=== PATIENT | female | born 1950 | race Caucasian/White ===

== ENCOUNTER 2017-09-11 18:53 | Emergency (ER) | payer MEDICARE, OTHER ==
[2017-09-11] MEDS: TRIMETHOPRIM/SULFAMETHOX (DS) TAB PO (20:16)
[2017-09-11] MEDS: CEPHALEXIN 500 MG CAP PO (20:16)
== END 2017-09-11 20:28 | disposition home or self-care (01) ==
LOC: FTE 18:53
DX: L03.031 Cellulitis of right toe (principal); E11.9 Type 2 diabetes mellitus without complications; I10 Essential (primary) hypertension
CPT/HCPCS: 99284

== ENCOUNTER 2017-09-22 18:29 | Emergency (ER) | payer MEDICARE, OTHER ==
[2017-09-22] MEDS: NICARDipine HCL 30 MG CAPSULE PO (19:06)
[2017-09-22] MEDS: LIDOCAINE 1% (MPF) 30 ML INJ SC (19:15)
[2017-09-22] MEDS: LIDOCAINE 1% (MDV) 20 ML INJ SC (19:15)
== END 2017-09-22 20:20 | disposition home or self-care (01) ==
LOC: E/R 18:29
DX: I10 Essential (primary) hypertension (principal); L03.031 Cellulitis of right toe; E11.9 Type 2 diabetes mellitus without complications
CPT/HCPCS: 10060; 99283-25

== ENCOUNTER 2017-11-18 17:43 | Emergency (ER) | payer MEDICARE, OTHER ==
[2017-11-18] MEDS: CEPHALEXIN 500 MG CAP PO (20:11)
[2017-11-18] MEDS: traMADol 50 MG TAB PO (20:12)
[2017-11-18] MEDS: DIPHTH/TET/ACEL PERTUSS (ADULT) 0.5 ML VIAL IM* (20:13)
== END 2017-11-18 20:34 | disposition home or self-care (01) ==
LOC: FTE 17:43
DX: T24.131A Burn of first degree of right lower leg, initial encounter (principal); I10 Essential (primary) hypertension; E11.9 Type 2 diabetes mellitus without complications; X58.XXXA Exposure to other specified factors, initial encounter; Y92.9 Unspecified place or not applicable; Z23 Encounter for immunization
CPT/HCPCS: 90471; 90715; 99284-25

== ENCOUNTER 2018-01-08 09:25 | Inpatient (IN) | payer MEDICARE, OTHER ==
[2018-01-08] MEDS: CEFAZOLIN 2 GM/50 ML (PMX) 50 ML IVPB (09:00)
[~2018-01-08 09:25] MED LIST: ROCURONIUM 50 MG INJ
[2018-01-08] MEDS ORDERED: PROPOFOL 20 ML (10:11)
[2018-01-08] MEDS ORDERED: ROCURONIUM 50 MG INJ (10:11)
[2018-01-08] MEDS ORDERED: THROMBIN 5000 UNIT VIAL (10:28)
[2018-01-08] MEDS ORDERED: HEPARIN 1000 UNITS/ML 10 ML INJ (10:28)
[2018-01-08] MEDS ORDERED: PAPAVERINE 60 MG INJ (10:28)
[2018-01-08] MEDS: GELATIN SIZE 100 SPONGE TOP (10:30)
[2018-01-08] MEDS: THROMBIN 5000 UNIT VIAL TOP (10:30)
[2018-01-08] MEDS: HEPARIN 1000 UNITS/ML 10 ML INJ IRR (10:30)
[2018-01-08] MEDS ORDERED: OXYCODONE/ACETAMINOPHEN (5/325) TAB PO ×2 (11:00)
[2018-01-08] MEDS ORDERED: HYDROmorphONE 1 MG/5 ML IV SYRINGE IV ×2 (11:00)
[2018-01-08] MEDS ORDERED: METOCLOPRAMIDE 10 MG INJ IV (11:00)
[2018-01-08] MEDS ORDERED: ALBUTEROL 0.083% (NEB) 2.5 MG/3 ML AMP HHN (11:00)
[2018-01-08] MEDS ORDERED: ONDANSETRON 4 MG INJ IV (11:00)
[2018-01-08] MEDS ORDERED: FENTAnyl 50 MCG/ML VIAL IV ×3 (11:00)
[2018-01-08] MEDS ORDERED: DIPHENHYDRAMINE 50 MG INJ IV (11:00)
[2018-01-08] MEDS ORDERED: MIDAZOLAM 1 MG/ML 2 ML INJ IV (11:00)
[2018-01-08] MEDS ORDERED: EPHEDrine SULFATE 50 MG/5 ML SYG IV (11:00)
[2018-01-08] MEDS ORDERED: ONDANSETRON 4 MG INJ (12:30)
[2018-01-08] MEDS ORDERED: DEXAMETHASONE 4 MG/ML 1 ML INJ (12:30)
[2018-01-08] MEDS ORDERED: ACETAMINOPHEN 1000MG/100ML IV 100 ML (13:58)
[2018-01-08] MEDS ORDERED: CEFAZOLIN 1 GM INJ (13:58)
[2018-01-08] MEDS ORDERED: SUGAMMADEX SODIUM 200 MG/2 ML VIAL IV (13:58)
[2018-01-08] MEDS ORDERED: LABETALOL HCL 20MG INJ ×2 (14:10→15:03)
[2018-01-08] MEDS ORDERED: niCARdipine 50 MG in SOD CHLORIDE 0.9% 480 ML IV (14:30)
[2018-01-08] MEDS: MEPERIDINE 25 MG INJ IV (14:51)
[2018-01-08] MEDS: HYDROmorphONE 1 MG/5 ML IV SYRINGE IV ×2 (14:54→14:59)
[2018-01-08] MEDS: LABETALOL HCL 20MG INJ IV (15:00)
[2018-01-08] MEDS ORDERED: GLUCOSE GEL 15 GRAM TUBE PO ×2 (15:00)
[2018-01-08] MEDS ORDERED: GLUCOSE GEL 15 GRAM TUBE BUCCAL (15:00)
[2018-01-08] MEDS ORDERED: GLUCAGON 1 MG INJ IM (15:00)
[2018-01-08] MEDS ORDERED: DEXTROSE 50% 50 ML SYRINGE IV ×2 (15:00)
[2018-01-08] MEDS: ASPIRIN 81 MG TAB PO (15:40)
[2018-01-08] MEDS: LACTATED RINGER'S 1,000 ML IV ×2 (16:34→20:03)
[2018-01-08] MEDS: INSULIN ASPART [NOVOLOG] 3 ML PEN SC ×3 (18:00→21:25)
[2018-01-08] MEDS: REPAGLINIDE 1 MG TAB PO (18:27)
[2018-01-08] MEDS: hydrALAzine 20 MG INJ IV (18:33)
[2018-01-08] MEDS: ACCU-CHEK XX (19:35)
[2018-01-08] MEDS: metFORMIN 500 MG TAB PO (21:22)
[2018-01-08] MEDS: ACETYLCYSTEINE 600 MG CAP PO (21:23)
[2018-01-08] MEDS: glipiZIDE 5 MG TAB PO (21:23)
[2018-01-08] MEDS: ATORVASTATIN 40 MG TAB PO (21:23)
[2018-01-08] MEDS: TERBINAFINE 250 MG TAB PO (21:24)
[2018-01-08] MEDS: FISH OIL 1,000 MG CAP PO (21:27)
[2018-01-08] MEDS: morphine 2 MG INJ IV (21:53)
[2018-01-09] MEDS: morphine 2 MG INJ IV ×6 (00:20→20:56)
[2018-01-09] MEDS: ACCU-CHEK XX ×3 (02:00→13:30)
[2018-01-09] MEDS: LACTATED RINGER'S 1,000 ML IV (02:23)
[2018-01-09 04:51] LABS: ADD MAN DIFF? NO
[2018-01-09 04:52] LABS: BASOPHILS % 0.1 % (0.0-2.0); HEMATOCRIT 26.9 % (37.0-47.0); HEMOGLOBIN 8.7 g/dl (12.0-16.0); LYMPHOCYTES # 0.8 10^3/ul (0.8-2.9); LYMPHOCYTES % 8.5 % (15.0-51.0); MEAN CORPUSCULAR HGB CONC 32.3 g/dl (32.0-37.0); MEAN CORPUSCULAR VOLUME 101.9 fl (82.0-101.0); MEAN PLATELET VOLUME 9.8 fl (7.4-10.4); MONOCYTE # 0.6 10^3/ul (0.3-0.9); MONOCYTES % 6.9 % (0.0-11.0); NEUTROPHIL # 7.6 10^3/ul (1.6-7.5); NEUTROPHILS % 83.9 % (39.0-77.0); PLATELET COUNT 183 10^3/UL (140-415); RED BLOOD COUNT 2.64 10^6/ul (4.20-5.40); RED CELL DISTRIBUTION WIDTH 12.6 % (11.5-14.5)
[2018-01-09 05:15] LABS: MAGNESIUM 1.6 mg/dl (1.7-2.5)
[2018-01-09] MEDS: TERBINAFINE 250 MG TAB PO ×2 (08:22→20:59)
[2018-01-09] MEDS: FISH OIL 1,000 MG CAP PO ×2 (08:22→20:56)
[2018-01-09] MEDS: ACETYLCYSTEINE 600 MG CAP PO ×2 (08:24→21:00)
[2018-01-09] MEDS: ASPIRIN 81 MG TAB PO ×2 (08:25→08:41)
[2018-01-09] MEDS: LOSARTAN 50 MG TAB PO ×2 (08:27→08:41)
[2018-01-09] MEDS: FERROUS SULFATE (EC) 325 MG TAB PO (08:28)
[2018-01-09] MEDS: HYDROCHLOROTHIAZIDE 25 MG TAB PO (08:28)
[2018-01-09] MEDS: REPAGLINIDE 1 MG TAB PO ×4 (08:28→17:49)
[2018-01-09] MEDS: metFORMIN 500 MG TAB PO (08:28)
[2018-01-09] MEDS: glipiZIDE 5 MG TAB PO ×2 (08:29→20:59)
[2018-01-09] MEDS: INSULIN ASPART [NOVOLOG] 3 ML PEN SC ×4 (08:31→21:14)
[2018-01-09 08:40] LABS: ALANINE AMINOTRANSFERASE 25 IU/L (13-69); ALBUMIN 3.2 g/dl (3.3-4.9); ALBUMIN/GLOBULIN RATIO 1.06; ALKALINE PHOSPHATASE 59 IU/L (42-121); ANION GAP 16 (8-16); ASPARTATE AMINO TRANSFERASE 19 IU/L (15-46); BILIRUBIN,INDIRECT 0.2 mg/dl (0-1.1); BILIRUBIN,TOTAL 0.2 mg/dl (0.2-1.3); BLOOD UREA NITROGEN 19 mg/dl (7-20); CALCIUM 8.5 mg/dl (8.4-10.2); CARBON DIOXIDE 20 mmol/L (21-31); CHLORIDE 108 mmol/L (97-110); CREATININE 0.62 mg/dl (0.44-1.00); GLUCOSE 153 mg/dl (70-220); SODIUM 140 mmol/L (135-144); TOTAL PROTEIN 6.2 g/dl (6.1-8.1)
[2018-01-09 09:17] LABS: IRON 43 ug/dl (35-150)
[2018-01-09 09:27] LABS: % IRON SATURATION 18 % SAT (22-52); TOTAL IRON BINDING CAPACITY 235 ug/dl (241-421)
[2018-01-09 09:54] LABS: FERRITIN 52.9 ng/ml (11.1-264.0)
[2018-01-09] MEDS ORDERED: PENDING SANTYL ORDER FOR WOUND CARE XX (10:30)
[2018-01-09] MEDS: MAGNESIUM SULFATE 3 GM in DEXTROSE 5% 100 ML IVPB (10:36)
[2018-01-09] MEDS: COLLAGENASE 5 GM (UD JAR) TOP (12:38)
[2018-01-09] MEDS ORDERED: OXYCODONE/ACETAMINOPHEN (10/325) TAB PO (15:30)
[2018-01-09] MEDS: HYDROCODONE/APAP (5/325) TAB PO (16:34)
[2018-01-09] MEDS: SOD FERRIC GLUC COMPLX 125 MG in SOD CHLORIDE 0.9% 100 ML IVPB (16:50)
[2018-01-09] MEDS: ATORVASTATIN 40 MG TAB PO (21:00)
[2018-01-10] MEDS: morphine 2 MG INJ IV ×4 (02:26→21:17)
[2018-01-10] MEDS: ACCU-CHEK XX (02:54)
[2018-01-10 06:29] LABS: WHITE BLOOD COUNT 6.1 10^3/ul (4.8-10.8)
[2018-01-10 06:29] LABS: ADD MAN DIFF? NO; BASOPHILS % 0.5 % (0.0-2.0); EOSINOPHILS % 0.7 % (0.0-7.0); HEMATOCRIT 26.9 % (37.0-47.0); HEMOGLOBIN 8.4 g/dl (12.0-16.0); LYMPHOCYTES # 1.8 10^3/ul (0.8-2.9); MEAN CORPUSCULAR HEMOGLOBIN 32.2 pg (29.0-33.0); MEAN CORPUSCULAR HGB CONC 31.2 g/dl (32.0-37.0); MEAN CORPUSCULAR VOLUME 103.1 fl (82.0-101.0); MEAN PLATELET VOLUME 10.1 fl (7.4-10.4); MONOCYTE # 0.8 10^3/ul (0.3-0.9); MONOCYTES % 12.9 % (0.0-11.0); NEUTROPHIL # 3.4 10^3/ul (1.6-7.5); NEUTROPHILS % 56.4 % (39.0-77.0); PLATELET COUNT 178 10^3/UL (140-415); RED BLOOD COUNT 2.61 10^6/ul (4.20-5.40); RED CELL DISTRIBUTION WIDTH 12.9 % (11.5-14.5)
[2018-01-10 06:50] LABS: ALANINE AMINOTRANSFERASE 23 IU/L (13-69); ALBUMIN 3.4 g/dl (3.3-4.9); ALBUMIN/GLOBULIN RATIO 1.09; ALKALINE PHOSPHATASE 70 IU/L (42-121); ANION GAP 11 (8-16); ASPARTATE AMINO TRANSFERASE 17 IU/L (15-46); BILIRUBIN,INDIRECT 0.3 mg/dl (0-1.1); BILIRUBIN,TOTAL 0.3 mg/dl (0.2-1.3); BLOOD UREA NITROGEN 21 mg/dl (7-20); CALCIUM 8.9 mg/dl (8.4-10.2); CARBON DIOXIDE 27 mmol/L (21-31); CHLORIDE 107 mmol/L (97-110); CREATININE 0.74 mg/dl (0.44-1.00); GLUCOSE 183 mg/dl (70-220); POTASSIUM 4.9 mmol/L (3.5-5.1); SODIUM 140 mmol/L (135-144); TOTAL PROTEIN 6.5 g/dl (6.1-8.1)
[2018-01-10 07:01] LABS: MAGNESIUM 2.1 mg/dl (1.7-2.5)
[2018-01-10] MEDS: INSULIN ASPART [NOVOLOG] 3 ML PEN SC ×4 (07:55→21:13)
[2018-01-10] MEDS: metFORMIN 500 MG TAB PO (07:57)
[2018-01-10] MEDS: LOSARTAN 50 MG TAB PO (07:57)
[2018-01-10] MEDS: COLLAGENASE 5 GM (UD JAR) TOP (07:57)
[2018-01-10] MEDS: FERROUS SULFATE (EC) 325 MG TAB PO (07:57)
[2018-01-10] MEDS: ACETYLCYSTEINE 600 MG CAP PO (07:58)
[2018-01-10] MEDS: HYDROCHLOROTHIAZIDE 25 MG TAB PO (07:58)
[2018-01-10] MEDS: FISH OIL 1,000 MG CAP PO ×2 (07:58→21:05)
[2018-01-10] MEDS: ASPIRIN 81 MG TAB PO (07:58)
[2018-01-10 09:01] LABS: HEMOGLOBIN A1C 9.6 % (0-5.9)
[2018-01-10] MEDS: glipiZIDE 5 MG TAB PO ×2 (10:12→21:04)
[2018-01-10] MEDS: REPAGLINIDE 1 MG TAB PO ×3 (10:12→17:11)
[2018-01-10] MEDS: TERBINAFINE 250 MG TAB PO ×2 (10:12→21:04)
[2018-01-10] MEDS: SOD FERRIC GLUC COMPLX 125 MG in SOD CHLORIDE 0.9% 100 ML IVPB (17:11)
[2018-01-10] MEDS: ATORVASTATIN 40 MG TAB PO (21:04)
== END 2018-01-10 23:28 | DRG 253 ==
LOC: TEL 01-09 16:50 → REC 09:25 → ICU 18:54
PROVIDERS: Surgery Vascular Surgery
PROC: 041K09L Bypass Right Femoral Artery to Popliteal Artery with Autologous Venous Tissue, Open Approach (ICD-10-PCS; principal; 2018-01-08 10:51)
PROC: 06BP0ZZ Excision of Right Saphenous Vein, Open Approach (ICD-10-PCS; 2018-01-08 10:51)
DX: I70.261 Atherosclerosis of native arteries of extremities with gangrene, right leg (principal); L97.219 Non-pressure chronic ulcer of right calf with unspecified severity; E78.5 Hyperlipidemia, unspecified; I10 Essential (primary) hypertension; E11.9 Type 2 diabetes mellitus without complications; B35.1 Tinea unguium
CPT/HCPCS: 80053; 82728; 82962; 83036; 83540; 83735; 85025; 86850; 86900; 86901; 87081; 87086; 97116; 97161; 97530

== ENCOUNTER 2018-01-10 23:58 | Inpatient (IN) | payer MEDICARE, OTHER ==
[2018-01-11] MEDS ORDERED: ACETAMINOPHEN 325 MG TAB PO (01:30)
[2018-01-11] MEDS ORDERED: MAGNESIUM HYDROXIDE 30ML CUP PO (01:30)
[2018-01-11] MEDS ORDERED: BISACODYL 10 MG SUPP PR (01:30)
[2018-01-11] MEDS ORDERED: GLUCOSE GEL 15 GRAM TUBE PO ×2 (02:25)
[2018-01-11] MEDS ORDERED: GLUCOSE GEL 15 GRAM TUBE BUCCAL (02:25)
[2018-01-11] MEDS ORDERED: GLUCAGON 1 MG INJ IM (02:25)
[2018-01-11] MEDS: OXYCODONE/ACETAMINOPHEN (10/325) TAB PO ×2 (03:06→12:22)
[2018-01-11 05:02] LABS: ADD UMIC YES; UR ASCORBIC ACID NEGATIVE (NEGATIVE); UR BACTERIA FEW /HPF (NONE SEEN); UR BILIRUBIN (Dip) NEGATIVE (NEGATIVE); UR BLOOD (Dip) 1+ mg/dL (NEGATIVE); UR CLARITY CLOUDY (CLEAR); UR COLOR YELLOW (YELLOW); UR GLUCOSE (Dip) NEGATIVE (NEGATIVE); UR KETONES (Dip) NEGATIVE (NEGATIVE); UR LEUKOCYTE ESTERASE (Dip) 3+ Leu/ul (NEGATIVE); UR NITRITE (Dip) NEGATIVE (NEGATIVE); UR RBC 5 /HPF (0-5); UR SPECIFIC GRAVITY (Dip) 1.012 (1.003-1.030); UR SQUAMOUS EPITHELIAL CELL MODERATE /HPF (FEW); UR TOTAL PROTEIN (Dip) NEGATIVE (NEGATIVE); UR UROBILINOGEN (Dip) NEGATIVE (NEGATIVE); UR WBC > 182 /HPF (0-5)
[2018-01-11] MEDS: INSULIN ASPART [NOVOLOG] 3 ML PEN SC ×4 (07:35→20:49)
[2018-01-11 07:38] LABS: ADD MAN DIFF? NO
[2018-01-11 07:49] LABS: BASOPHILS % 0.6 % (0.0-2.0); EOSINOPHILS # 0.2 10^3/ul (0.0-0.5); EOSINOPHILS % 3.3 % (0.0-7.0); HEMATOCRIT 30.4 % (37.0-47.0); HEMOGLOBIN 9.5 g/dl (12.0-16.0); LYMPHOCYTES % 28.1 % (15.0-51.0); MEAN CORPUSCULAR HEMOGLOBIN 32.8 pg (29.0-33.0); MEAN CORPUSCULAR HGB CONC 31.3 g/dl (32.0-37.0); MEAN CORPUSCULAR VOLUME 104.8 fl (82.0-101.0); MEAN PLATELET VOLUME 10.1 fl (7.4-10.4); MONOCYTE # 0.8 10^3/ul (0.3-0.9); NEUTROPHIL # 3.9 10^3/ul (1.6-7.5); NEUTROPHILS % 55.3 % (39.0-77.0); PLATELET COUNT 202 10^3/UL (140-415); RED CELL DISTRIBUTION WIDTH 12.6 % (11.5-14.5)
[2018-01-11 08:17] LABS: ALANINE AMINOTRANSFERASE 16 IU/L (13-69); ALBUMIN 3.8 g/dl (3.3-4.9); ALBUMIN/GLOBULIN RATIO 1.26; ALKALINE PHOSPHATASE 82 IU/L (42-121); ANION GAP 11 (8-16); ASPARTATE AMINO TRANSFERASE 18 IU/L (15-46); BILIRUBIN,INDIRECT 0.3 mg/dl (0-1.1); BILIRUBIN,TOTAL 0.3 mg/dl (0.2-1.3); BLOOD UREA NITROGEN 21 mg/dl (7-20); CALCIUM 9.6 mg/dl (8.4-10.2); CARBON DIOXIDE 29 mmol/L (21-31); CHLORIDE 107 mmol/L (97-110); CREATININE 0.72 mg/dl (0.44-1.00); GLUCOSE 128 mg/dl (70-220); POTASSIUM 4.6 mmol/L (3.5-5.1); SODIUM 142 mmol/L (135-144); TOTAL PROTEIN 6.8 g/dl (6.1-8.1)
[2018-01-11] MEDS: glipiZIDE 5 MG TAB PO ×2 (08:29→20:51)
[2018-01-11] MEDS: REPAGLINIDE 1 MG TAB PO ×3 (08:29→17:32)
[2018-01-11] MEDS: metFORMIN 500 MG TAB PO (08:32)
[2018-01-11] MEDS: HYDROCODONE/APAP (5/325) TAB PO ×3 (08:33→23:03)
[2018-01-11] MEDS: COLLAGENASE 5 GM (UD JAR) TOP (09:00)
[2018-01-11] MEDS: LOSARTAN 50 MG TAB PO (09:46)
[2018-01-11] MEDS: FISH OIL 1,000 MG CAP PO ×2 (09:46→20:50)
[2018-01-11] MEDS: FERROUS SULFATE (EC) 325 MG TAB PO (09:46)
[2018-01-11] MEDS: HYDROCHLOROTHIAZIDE 25 MG TAB PO (09:47)
[2018-01-11] MEDS: TERBINAFINE 250 MG TAB PO ×2 (09:47→20:51)
[2018-01-11] MEDS: HEPARIN 5,000 UNIT/0.5 ML VIAL SC ×2 (09:51→20:56)
[2018-01-11] MEDS: DOCUSATE SODIUM 100 MG CAP PO ×2 (09:52→20:50)
[2018-01-11] MEDS: ASPIRIN 81 MG TAB PO (09:52)
[2018-01-11] MEDS: FOLIC ACID 1 MG TAB NGT (17:32)
[2018-01-11] MEDS: ASCORBIC ACID 500 MG TAB PO (17:43)
[2018-01-11] MEDS: ZINC SULFATE 220 MG CAP PO (20:51)
[2018-01-11] MEDS: ATORVASTATIN 40 MG TAB PO (20:51)
[2018-01-11] MEDS: SENNA TAB PO (20:51)
[2018-01-11] MEDS: LACTULOSE 30ML CUP PO (20:55)
[2018-01-12] MEDS: ACCU-CHEK XX (02:00)
[2018-01-12] MEDS: HYDROCODONE/APAP (5/325) TAB PO ×2 (07:22→23:40)
[2018-01-12] MEDS: INSULIN ASPART [NOVOLOG] 3 ML PEN SC ×4 (08:34→21:00)
[2018-01-12] MEDS: DOCUSATE SODIUM 100 MG CAP PO ×2 (08:45→21:00)
[2018-01-12] MEDS: REPAGLINIDE 1 MG TAB PO ×3 (08:46→17:24)
[2018-01-12] MEDS: metFORMIN 500 MG TAB PO (08:47)
[2018-01-12] MEDS: FISH OIL 1,000 MG CAP PO ×2 (08:48→21:06)
[2018-01-12] MEDS: FOLIC ACID 1 MG TAB NGT (08:48)
[2018-01-12] MEDS: ASPIRIN 81 MG TAB PO (08:48)
[2018-01-12] MEDS: FERROUS SULFATE (EC) 325 MG TAB PO (08:48)
[2018-01-12] MEDS: ASCORBIC ACID 500 MG TAB PO (08:48)
[2018-01-12] MEDS: HYDROCHLOROTHIAZIDE 25 MG TAB PO (08:49)
[2018-01-12] MEDS: LOSARTAN 50 MG TAB PO (08:49)
[2018-01-12] MEDS: glipiZIDE 5 MG TAB PO ×2 (08:51→21:07)
[2018-01-12] MEDS: HEPARIN 5,000 UNIT/0.5 ML VIAL SC ×2 (08:51→21:05)
[2018-01-12] MEDS: COLLAGENASE 5 GM (UD JAR) TOP ×2 (09:00→09:04)
[2018-01-12] MEDS: TERBINAFINE 250 MG TAB PO ×2 (09:04→21:10)
[2018-01-12] MEDS: OXYCODONE/ACETAMINOPHEN (10/325) TAB PO ×2 (12:32→21:11)
[2018-01-12] MEDS: SENNA TAB PO (21:00)
[2018-01-12] MEDS: FOSFOMYCIN 3 GM PACKET PO (21:04)
[2018-01-12] MEDS: ATORVASTATIN 40 MG TAB PO (21:06)
[2018-01-12] MEDS: ZINC SULFATE 220 MG CAP PO (21:06)
[2018-01-13] MEDS: ACCU-CHEK XX (02:00)
[2018-01-13] MEDS: OXYCODONE/ACETAMINOPHEN (10/325) TAB PO ×3 (03:35→21:19)
[2018-01-13] MEDS: INSULIN ASPART [NOVOLOG] 3 ML PEN SC ×4 (07:35→21:00)
[2018-01-13] MEDS: TERBINAFINE 250 MG TAB PO ×2 (08:42→21:14)
[2018-01-13] MEDS: ASPIRIN 81 MG TAB PO (08:42)
[2018-01-13] MEDS: ASCORBIC ACID 500 MG TAB PO (08:42)
[2018-01-13] MEDS: HYDROCHLOROTHIAZIDE 25 MG TAB PO (08:42)
[2018-01-13] MEDS: HEPARIN 5,000 UNIT/0.5 ML VIAL SC ×2 (08:42→21:20)
[2018-01-13] MEDS: glipiZIDE 5 MG TAB PO ×2 (08:43→21:15)
[2018-01-13] MEDS: DOCUSATE SODIUM 100 MG CAP PO ×2 (08:43→21:15)
[2018-01-13] MEDS: FERROUS SULFATE (EC) 325 MG TAB PO (08:43)
[2018-01-13] MEDS: FISH OIL 1,000 MG CAP PO ×2 (08:43→21:14)
[2018-01-13] MEDS: FOLIC ACID 1 MG TAB NGT (08:43)
[2018-01-13] MEDS: metFORMIN 500 MG TAB PO (08:43)
[2018-01-13] MEDS: REPAGLINIDE 1 MG TAB PO ×3 (08:43→17:32)
[2018-01-13] MEDS: LOSARTAN 50 MG TAB PO (08:44)
[2018-01-13] MEDS: COLLAGENASE 5 GM (UD JAR) TOP (08:49)
[2018-01-13] MEDS: ATORVASTATIN 40 MG TAB PO (21:14)
[2018-01-13] MEDS: SENNA TAB PO (21:15)
[2018-01-13] MEDS: ZINC SULFATE 220 MG CAP PO (21:15)
[2018-01-14] MEDS: ACCU-CHEK XX (02:00)
[2018-01-14] MEDS: OXYCODONE/ACETAMINOPHEN (10/325) TAB PO ×2 (05:06→21:16)
[2018-01-14] MEDS: INSULIN ASPART [NOVOLOG] 3 ML PEN SC ×4 (07:35→20:37)
[2018-01-14] MEDS: FERROUS SULFATE (EC) 325 MG TAB PO (08:23)
[2018-01-14] MEDS: REPAGLINIDE 1 MG TAB PO ×3 (08:23→17:16)
[2018-01-14] MEDS: metFORMIN 500 MG TAB PO (08:23)
[2018-01-14] MEDS: HEPARIN 5,000 UNIT/0.5 ML VIAL SC ×2 (08:25→20:36)
[2018-01-14] MEDS: TERBINAFINE 250 MG TAB PO ×2 (08:25→20:26)
[2018-01-14] MEDS: FISH OIL 1,000 MG CAP PO ×2 (08:26→20:26)
[2018-01-14] MEDS: ASPIRIN 81 MG TAB PO (08:26)
[2018-01-14] MEDS: FOLIC ACID 1 MG TAB NGT (08:26)
[2018-01-14] MEDS: glipiZIDE 5 MG TAB PO ×2 (08:26→20:26)
[2018-01-14] MEDS: LOSARTAN 50 MG TAB PO (08:26)
[2018-01-14] MEDS: HYDROCHLOROTHIAZIDE 25 MG TAB PO (08:26)
[2018-01-14] MEDS: COLLAGENASE 5 GM (UD JAR) TOP (08:27)
[2018-01-14] MEDS: DOCUSATE SODIUM 100 MG CAP PO ×2 (08:27→21:00)
[2018-01-14] MEDS: ASCORBIC ACID 500 MG TAB PO (08:27)
[2018-01-14] MEDS: HYDROCODONE/APAP (5/325) TAB PO (16:58)
[2018-01-14] MEDS: ZINC SULFATE 220 MG CAP PO (20:25)
[2018-01-14] MEDS: ATORVASTATIN 40 MG TAB PO (20:26)
[2018-01-14] MEDS: SENNA TAB PO (20:37)
[2018-01-15] MEDS: HYDROCODONE/APAP (5/325) TAB PO ×2 (01:48→20:22)
[2018-01-15] MEDS: ACCU-CHEK XX (02:00)
[2018-01-15] MEDS: INSULIN ASPART [NOVOLOG] 3 ML PEN SC ×4 (08:45→21:00)
[2018-01-15] MEDS: REPAGLINIDE 1 MG TAB PO ×3 (08:47→17:59)
[2018-01-15] MEDS: ASCORBIC ACID 500 MG TAB PO (08:47)
[2018-01-15] MEDS: TERBINAFINE 250 MG TAB PO (08:47)
[2018-01-15] MEDS: glipiZIDE 5 MG TAB PO ×2 (08:47→20:21)
[2018-01-15] MEDS: FERROUS SULFATE (EC) 325 MG TAB PO (08:47)
[2018-01-15] MEDS: FISH OIL 1,000 MG CAP PO ×2 (08:47→20:21)
[2018-01-15] MEDS: metFORMIN 500 MG TAB PO (08:47)
[2018-01-15] MEDS: LOSARTAN 50 MG TAB PO (08:48)
[2018-01-15] MEDS: HYDROCHLOROTHIAZIDE 25 MG TAB PO (08:48)
[2018-01-15] MEDS: FOLIC ACID 1 MG TAB NGT (08:48)
[2018-01-15] MEDS: ASPIRIN 81 MG TAB PO (08:49)
[2018-01-15] MEDS: DOCUSATE SODIUM 100 MG CAP PO ×2 (08:50→21:00)
[2018-01-15] MEDS: COLLAGENASE 5 GM (UD JAR) TOP (08:51)
[2018-01-15] MEDS: HEPARIN 5,000 UNIT/0.5 ML VIAL SC ×2 (08:51→20:27)
[2018-01-15] MEDS: OXYCODONE/ACETAMINOPHEN (10/325) TAB PO (10:49)
[2018-01-15] MEDS: CEPHALEXIN 500 MG CAP PO ×2 (17:13→22:58)
[2018-01-15] MEDS: ATORVASTATIN 40 MG TAB PO (20:21)
[2018-01-15] MEDS: ZINC SULFATE 220 MG CAP PO (20:21)
[2018-01-15] MEDS: SENNA TAB PO (21:00)
[2018-01-16] MEDS: ACCU-CHEK XX (02:00)
[2018-01-16] MEDS: HYDROCODONE/APAP (5/325) TAB PO ×2 (03:26→21:46)
[2018-01-16] MEDS: CEPHALEXIN 500 MG CAP PO ×3 (06:21→21:46)
[2018-01-16] MEDS: OXYCODONE/ACETAMINOPHEN (10/325) TAB PO ×2 (08:24→15:17)
[2018-01-16] MEDS: REPAGLINIDE 1 MG TAB PO ×2 (08:27→12:42)
[2018-01-16] MEDS: metFORMIN 500 MG TAB PO (08:28)
[2018-01-16] MEDS: FOLIC ACID 1 MG TAB NGT (08:28)
[2018-01-16] MEDS: ASCORBIC ACID 500 MG TAB PO (08:28)
[2018-01-16] MEDS: glipiZIDE 5 MG TAB PO ×2 (08:28→21:46)
[2018-01-16] MEDS: FERROUS SULFATE (EC) 325 MG TAB PO (08:28)
[2018-01-16] MEDS: ASPIRIN 81 MG TAB PO (08:28)
[2018-01-16] MEDS: DOCUSATE SODIUM 100 MG CAP PO ×2 (08:28→21:00)
[2018-01-16] MEDS: FISH OIL 1,000 MG CAP PO ×2 (08:29→21:46)
[2018-01-16] MEDS: INSULIN ASPART [NOVOLOG] 3 ML PEN SC ×4 (08:32→21:00)
[2018-01-16] MEDS: HEPARIN 5,000 UNIT/0.5 ML VIAL SC ×2 (08:32→21:52)
[2018-01-16] MEDS: COLLAGENASE 5 GM (UD JAR) TOP (08:33)
[2018-01-16] MEDS: LOSARTAN 50 MG TAB PO (09:09)
[2018-01-16] MEDS: HYDROCHLOROTHIAZIDE 25 MG TAB PO (09:10)
[2018-01-16] MEDS: SENNA TAB PO (21:00)
[2018-01-16] MEDS: ATORVASTATIN 40 MG TAB PO (21:46)
[2018-01-16] MEDS: ZINC SULFATE 220 MG CAP PO (21:46)
[2018-01-16] MEDS: DOXAZOSIN 2 MG TAB PO (21:47)
[2018-01-17] MEDS: ACCU-CHEK XX (02:00)
[2018-01-17] MEDS: HYDROCODONE/APAP (5/325) TAB PO ×2 (06:13→08:23)
[2018-01-17] MEDS: CEPHALEXIN 500 MG CAP PO ×3 (06:13→21:23)
[2018-01-17] MEDS: INSULIN ASPART [NOVOLOG] 3 ML PEN SC ×4 (08:25→21:00)
[2018-01-17] MEDS: ASPIRIN 81 MG TAB PO (08:27)
[2018-01-17] MEDS: metFORMIN 500 MG TAB PO (08:27)
[2018-01-17] MEDS: FOLIC ACID 1 MG TAB NGT (08:27)
[2018-01-17] MEDS: DOCUSATE SODIUM 100 MG CAP PO ×2 (08:27→21:00)
[2018-01-17] MEDS: LOSARTAN 50 MG TAB PO (08:28)
[2018-01-17] MEDS: FISH OIL 1,000 MG CAP PO ×2 (08:28→21:23)
[2018-01-17] MEDS: FERROUS SULFATE (EC) 325 MG TAB PO (08:28)
[2018-01-17] MEDS: COLLAGENASE 5 GM (UD JAR) TOP (08:29)
[2018-01-17] MEDS: HYDROCHLOROTHIAZIDE 25 MG TAB PO (08:29)
[2018-01-17] MEDS: ASCORBIC ACID 500 MG TAB PO (08:29)
[2018-01-17] MEDS: glipiZIDE 5 MG TAB PO ×2 (08:29→21:23)
[2018-01-17] MEDS: HEPARIN 5,000 UNIT/0.5 ML VIAL SC ×2 (08:30→21:31)
[2018-01-17] MEDS: SENNA TAB PO (21:00)
[2018-01-17] MEDS: DOXAZOSIN 2 MG TAB PO (21:23)
[2018-01-17] MEDS: ATORVASTATIN 40 MG TAB PO (21:23)
[2018-01-17] MEDS: ZINC SULFATE 220 MG CAP PO (21:23)
[2018-01-17] MEDS: OXYCODONE/ACETAMINOPHEN (10/325) TAB PO (21:24)
[2018-01-18] MEDS: OXYCODONE/ACETAMINOPHEN (10/325) TAB PO ×2 (01:51→10:07)
[2018-01-18] MEDS: ACCU-CHEK XX (02:00)
[2018-01-18] MEDS: CEPHALEXIN 500 MG CAP PO ×3 (06:29→21:14)
[2018-01-18] MEDS: INSULIN ASPART [NOVOLOG] 3 ML PEN SC ×4 (07:35→21:30)
[2018-01-18] MEDS: ASPIRIN 81 MG TAB PO (08:24)
[2018-01-18] MEDS: HYDROCHLOROTHIAZIDE 25 MG TAB PO (08:24)
[2018-01-18] MEDS: FOLIC ACID 1 MG TAB NGT (08:25)
[2018-01-18] MEDS: FERROUS SULFATE (EC) 325 MG TAB PO (08:25)
[2018-01-18] MEDS: LOSARTAN 50 MG TAB PO (08:25)
[2018-01-18] MEDS: DOCUSATE SODIUM 100 MG CAP PO ×2 (08:25→21:00)
[2018-01-18] MEDS: glipiZIDE 5 MG TAB PO ×2 (08:25→21:13)
[2018-01-18] MEDS: FISH OIL 1,000 MG CAP PO ×2 (08:25→21:13)
[2018-01-18] MEDS: metFORMIN 500 MG TAB PO (08:25)
[2018-01-18] MEDS: HEPARIN 5,000 UNIT/0.5 ML VIAL SC ×2 (08:26→21:31)
[2018-01-18] MEDS: COLLAGENASE 5 GM (UD JAR) TOP (08:30)
[2018-01-18] MEDS: ASCORBIC ACID 500 MG TAB PO (10:07)
[2018-01-18] MEDS: SENNA TAB PO (21:00)
[2018-01-18] MEDS: ZINC SULFATE 220 MG CAP PO (21:14)
[2018-01-18] MEDS: ATORVASTATIN 40 MG TAB PO (21:14)
[2018-01-18] MEDS: DOXAZOSIN 2 MG TAB PO (21:23)
[2018-01-19] MEDS: OXYCODONE/ACETAMINOPHEN (10/325) TAB PO ×3 (01:53→20:38)
[2018-01-19] MEDS: ACCU-CHEK XX (02:12)
[2018-01-19] MEDS: HYDROCODONE/APAP (5/325) TAB PO (05:17)
[2018-01-19] MEDS: CEPHALEXIN 500 MG CAP PO ×3 (05:17→22:33)
[2018-01-19] MEDS: metFORMIN 500 MG TAB PO (08:25)
[2018-01-19] MEDS: glipiZIDE 5 MG TAB PO ×2 (08:25→20:24)
[2018-01-19] MEDS: INSULIN ASPART [NOVOLOG] 3 ML PEN SC ×4 (08:34→20:25)
[2018-01-19] MEDS: COLLAGENASE 5 GM (UD JAR) TOP (09:00)
[2018-01-19] MEDS: ASCORBIC ACID 500 MG TAB PO (10:02)
[2018-01-19] MEDS: FERROUS SULFATE (EC) 325 MG TAB PO (10:03)
[2018-01-19] MEDS: FOLIC ACID 1 MG TAB NGT (10:03)
[2018-01-19] MEDS: ASPIRIN 81 MG TAB PO (10:04)
[2018-01-19] MEDS: LOSARTAN 50 MG TAB PO (10:04)
[2018-01-19] MEDS: FISH OIL 1,000 MG CAP PO ×2 (10:05→20:24)
[2018-01-19] MEDS: DOCUSATE SODIUM 100 MG CAP PO ×2 (10:05→20:25)
[2018-01-19] MEDS: HYDROCHLOROTHIAZIDE 25 MG TAB PO (10:05)
[2018-01-19] MEDS: HEPARIN 5,000 UNIT/0.5 ML VIAL SC ×2 (10:12→20:38)
[2018-01-19] MEDS: SENNA TAB PO (20:24)
[2018-01-19] MEDS: DOXAZOSIN 2 MG TAB PO (20:24)
[2018-01-19] MEDS: ATORVASTATIN 40 MG TAB PO (20:25)
[2018-01-19] MEDS: ZINC SULFATE 220 MG CAP PO (20:25)
[2018-01-20] MEDS: ACCU-CHEK XX (02:00)
[2018-01-20] MEDS: OXYCODONE/ACETAMINOPHEN (10/325) TAB PO ×4 (02:36→21:30)
[2018-01-20] MEDS: CEPHALEXIN 500 MG CAP PO ×3 (05:57→21:23)
[2018-01-20 07:36] LABS: HEMOGLOBIN A1C 8.8 % (0-5.9)
[2018-01-20] MEDS: LOSARTAN 50 MG TAB PO (09:00)
[2018-01-20] MEDS: glipiZIDE 5 MG TAB PO ×2 (09:00→21:23)
[2018-01-20] MEDS: COLLAGENASE 5 GM (UD JAR) TOP (09:00)
[2018-01-20] MEDS: metFORMIN 500 MG TAB PO (09:02)
[2018-01-20] MEDS: INSULIN ASPART [NOVOLOG] 3 ML PEN SC ×4 (09:02→21:00)
[2018-01-20] MEDS: DOCUSATE SODIUM 100 MG CAP PO ×2 (12:00→21:23)
[2018-01-20] MEDS: HYDROCODONE/APAP (5/325) TAB PO ×2 (12:00→18:12)
[2018-01-20] MEDS: ASPIRIN 81 MG TAB PO (12:00)
[2018-01-20] MEDS: FOLIC ACID 1 MG TAB NGT (12:00)
[2018-01-20] MEDS: FISH OIL 1,000 MG CAP PO ×2 (12:01→21:23)
[2018-01-20] MEDS: FERROUS SULFATE (EC) 325 MG TAB PO (12:01)
[2018-01-20] MEDS: HYDROCHLOROTHIAZIDE 25 MG TAB PO (12:02)
[2018-01-20] MEDS: ASCORBIC ACID 500 MG TAB PO (12:04)
[2018-01-20] MEDS: HEPARIN 5,000 UNIT/0.5 ML VIAL SC ×2 (12:05→21:27)
[2018-01-20] MEDS: ZINC SULFATE 220 MG CAP PO (21:23)
[2018-01-20] MEDS: ATORVASTATIN 40 MG TAB PO (21:23)
[2018-01-20] MEDS: DOXAZOSIN 2 MG TAB PO (21:24)
[2018-01-20] MEDS: SENNA TAB PO (21:24)
[2018-01-21] MEDS: ACCU-CHEK XX (02:00)
[2018-01-21] MEDS: OXYCODONE/ACETAMINOPHEN (10/325) TAB PO (03:35)
[2018-01-21] MEDS: CEPHALEXIN 500 MG CAP PO ×3 (06:19→21:16)
[2018-01-21] MEDS: FOLIC ACID 1 MG TAB NGT (08:45)
[2018-01-21] MEDS: ASPIRIN 81 MG TAB PO (08:45)
[2018-01-21] MEDS: glipiZIDE 5 MG TAB PO ×2 (08:45→21:16)
[2018-01-21] MEDS: HYDROCHLOROTHIAZIDE 25 MG TAB PO (08:45)
[2018-01-21] MEDS: FERROUS SULFATE (EC) 325 MG TAB PO (08:45)
[2018-01-21] MEDS: metFORMIN 500 MG TAB PO (08:45)
[2018-01-21] MEDS: ASCORBIC ACID 500 MG TAB PO (08:45)
[2018-01-21] MEDS: FISH OIL 1,000 MG CAP PO ×2 (08:45→21:16)
[2018-01-21] MEDS: LOSARTAN 50 MG TAB PO (08:46)
[2018-01-21] MEDS: DOCUSATE SODIUM 100 MG CAP PO ×2 (08:46→21:16)
[2018-01-21] MEDS: HEPARIN 5,000 UNIT/0.5 ML VIAL SC ×2 (08:49→21:24)
[2018-01-21] MEDS: INSULIN ASPART [NOVOLOG] 3 ML PEN SC ×4 (08:55→21:23)
[2018-01-21] MEDS: COLLAGENASE 5 GM (UD JAR) TOP (08:55)
[2018-01-21] MEDS: SENNA TAB PO (21:15)
[2018-01-21] MEDS: ZINC SULFATE 220 MG CAP PO (21:16)
[2018-01-21] MEDS: ATORVASTATIN 40 MG TAB PO (21:16)
[2018-01-21] MEDS: DOXAZOSIN 2 MG TAB PO (21:17)
[2018-01-21] MEDS: HYDROCODONE/APAP (5/325) TAB PO (21:24)
[2018-01-22] MEDS: ACCU-CHEK XX (02:00)
[2018-01-22] MEDS: HYDROCODONE/APAP (5/325) TAB PO (03:37)
[2018-01-22] MEDS: CEPHALEXIN 500 MG CAP PO ×2 (06:24→14:00)
[2018-01-22] MEDS: COLLAGENASE 5 GM (UD JAR) TOP (08:09)
[2018-01-22] MEDS: FERROUS SULFATE (EC) 325 MG TAB PO (08:11)
[2018-01-22] MEDS: HEPARIN 5,000 UNIT/0.5 ML VIAL SC (08:11)
[2018-01-22] MEDS: FISH OIL 1,000 MG CAP PO (08:11)
[2018-01-22] MEDS: glipiZIDE 5 MG TAB PO (08:11)
[2018-01-22] MEDS: HYDROCHLOROTHIAZIDE 25 MG TAB PO (08:11)
[2018-01-22] MEDS: metFORMIN 500 MG TAB PO (08:12)
[2018-01-22] MEDS: ASCORBIC ACID 500 MG TAB PO (08:12)
[2018-01-22] MEDS: FOLIC ACID 1 MG TAB NGT (08:12)
[2018-01-22] MEDS: DOCUSATE SODIUM 100 MG CAP PO (08:12)
[2018-01-22] MEDS: LOSARTAN 50 MG TAB PO (08:12)
[2018-01-22] MEDS: ASPIRIN 81 MG TAB PO (08:12)
[2018-01-22] MEDS: INSULIN ASPART [NOVOLOG] 3 ML PEN SC ×2 (08:13→13:05)
== END 2018-01-22 14:00 | disposition home health service (06) | DRG 300 ==
LOC: VRC 23:58
PROVIDERS: Physical Medicine & Rehabilitation
PROC: F07Z5ZZ Bed Mobility Treatment (ICD-10-PCS; principal; 2018-01-10)
PROC: F08Z2ZZ Grooming/Personal Hygiene Treatment (ICD-10-PCS; 2018-01-10)
DX: I73.9 Peripheral vascular disease, unspecified (principal); L97.819 Non-pressure chronic ulcer of other part of right lower leg with unspecified severity; N39.0 Urinary tract infection, site not specified; D62 Acute posthemorrhagic anemia; E11.9 Type 2 diabetes mellitus without complications; I10 Essential (primary) hypertension; M19.90 Unspecified osteoarthritis, unspecified site; Z85.038 Personal history of other malignant neoplasm of large intestine; E78.5 Hyperlipidemia, unspecified; Z79.82 Long term (current) use of aspirin; R53.81 Other malaise; F06.31 Mood disorder due to known physiological condition with depressive features; M71.22 Synovial cyst of popliteal space [Baker], left knee; B35.1 Tinea unguium
CPT/HCPCS: 80053; 81001; 82962; 83036; 85025; 87081; 87086; 97110; 97112; 97116; 97150; 97163; 97167; 97530; 97535; 97542

== ENCOUNTER 2018-07-08 11:08 | Emergency (ER) | payer MEDICARE, OTHER | END 2018-07-08 14:51 | disposition home or self-care (01) | LOC: FTE 11:08 | DX: S92.354A Nondisplaced fracture of fifth metatarsal bone, right foot, initial encounter for closed fracture (principal); I10 Essential (primary) hypertension; E11.9 Type 2 diabetes mellitus without complications; X58.XXXA Exposure to other specified factors, initial encounter; Y92.9 Unspecified place or not applicable; Z87.891 Personal history of nicotine dependence; Z79.84 Long term (current) use of oral hypoglycemic drugs; Z79.82 Long term (current) use of aspirin | CPT/HCPCS: 73630; 99283-25 ==